=== PATIENT | female | born 1980 | race Caucasian/White ===

== ENCOUNTER → 2016-03-15 | Outpatient (CLI) | payer MEDICAID ==
--- NOTE | 2016-03-15 13:55 | US ---
March 15, [address] Hardin, Thank you for requesting consultation and a detailed obstetrical ultrasound for Mrs. Contreras secondary to advanced maternal age. As you know, Cr is a [age] year old G 3, P 2000 . Her due date is 12/31 by first trimester ultrasound. Her current gestational age based on this dating is 21 weeks 1 days. Her genetic screening revealed a reassuring Panorama NIPT by her report. She had gestational hypertension in her prior pregnancies, but denies preeclampsia. Both babies were delivered vaginally at term. She reports travel to areas of Zika concern in the first trimester of . To her k nowledge she did not have any illness associated with this event. Zika serology has not yet been per formed. ULTRASOUND Number of fetuses: 1 Placental location: Anterior to left lateral Placental cord insertion: Intraplacental presentation: Breech Cervix: 4.6 cm viewed transabdominally Maximum Vertical Pocket: 4.3 cm The adnexa were evaluated. No pathology was seen. Right ovary is visualized and appears normal. It measures 2.7 x 2.7 x 1.8 cm. Left ovary is visualized and appears normal. It measures 2.7 x 2.7 x 1.5 cm. MEASUREMENTS: Biparietal diameter: 50 mm 21 weeks, 2 days Head circumference: 196 mm 21 weeks, 6 days Abdominal circumference: 161 mm 21 weeks, 2 days Femur length: 34 mm 20 weeks, 6 days Humerus length: 33 mm 21 weeks, 3 days Transcerebellar diameter: 24 mm 22 weeks, 1 days Average ultrasound age: 21 weeks, 3 days Estimated weight: 398 gm weight percentile: 43% ANATOMY Supratentorial brain: Normal including views of the falx, cavum septum pellucidum and choroids Lateral Ventricle: Normal, measuring 6.8 mm Posterior fossa: Normal including the cerebellum and cisterna magna Spine: Normal axial views; suboptimal sagittal views Nuchal fold: 3.5 mm normal Face: Normal views of the lip and nose area Profile: Normal Palate: Normal appearance of the alveolar ridge Cardiac Exam: Four chamber view of the heart: Normal including intraventricular septum Left Ventricular Outflow Tract: Normal Right Ventricular Outflow Tract: Normal 3 Vessel View: Normal Tracheal View: Suboptimal Aortic Arch: Normal Ductal Arch: Normal SVC/IVC: Normal Heart Rate: 152 bpm Diaphragm: No overt abnormalities have been detected Stomach: Normal Umbilical cord insertion: Normal Right kidney: Normal Left kidney: Normal Bladder: Normal Number of cord vessels: Three Upper extremities: Normal including the number, and architecture Lower extremities: Normal including the number and architecture Gender: Female IMPRESSION: 1. Intrauterine at 21 w 1 d, MALCOLM of 07/26/15. This is consistent with her previously esta blished dates. 2. Today's sonogram reveals a normal appearing fetus. 3. Cervical length measures 4.6 cm, and is without evidence of insufficiency. 4. Advanced maternal age RECOMMENDATIONS: I was pleased to review today's ultrasound with your patient. I have reassured her that the gr owth and amniotic fluid volume are appropriate for this gestational age. The detailed anatomic surve y did not reveal any overt abnormalities. Cr is aware that ultrasound is a screening tool and cannot provide definitive genetic diagnosis. Should she desire definitive genetic diagnosis, she would need to have a genetic amniocentesis performed. After our discussion regarding the procedure, benefits, risks, alternatives, and limitations to the information received Cr DECLINES amniocente sis. We discussed her exposure to Zika in this and the current CDC recommendations. She is like ly out of range for serologic testing. She could consider ultrasound surveillance which is recommend ed monthly throughout the . She felt that she was low risk and would like to defer further ultrasound evaluation. I asked her to discuss this with you at your next visit. Future ultrasound and consultation is left to your clinical discretion. Thank you for allowing me the opportunity to consult and evaluate your patient. Should you have any questions or concerns please do not hesitate to contact me. This visit was approximately 15 minutes in length with 10 minutes spent in direct face to face consultation reviewing aneuploidy screening ve rsus definitive genetic diagnosis. Sincerely, Sharla Jorgensen MD [facility] Department of Obstetrics & Gynecology [facility]
--- NOTE | 2016-03-15 19:05 | US ---
Detailed Obstetric Ultrasound March 15, 2016 Indication: 35-year-old 3 para 2-0-0-2 woman presenting to the Perinatology Clinic for anatom y and dating. is complicated by advanced maternal age.. The estimated gestational age of pr evious dating is 21 weeks and 1 day yielding an EDC of July 25, 2016. Comparison: None. Findings: Number: 1 Presentation: Breech Placental location: Anterior left paramedian Placenta cord insertion: Central Cervix: 4.6 cm (visualized transabdominally) Maximum vertical pocket: 4.3 cm heart rate: 152 bpm Ovaries: Normal size. Right: 2.7 x 2.7 x 1.8 cm. Left: 2.8 x 2.7 x 1.5 cm Biometry: Biparietal diameter: 50 mm 21 weeks, 2 days Head circumference: 196 mm 21 weeks, 6 days Abdominal circumference: 161 mm 21 weeks, 2 days Femur length: 34 mm 20 weeks, 6 days Humerus length: 33 mm 21 weeks, 3 days Transcerebellar diameter: 24 mm 22 weeks, 1 day HC/AC: 1.21 (1.06 - 1.25) FL/BPD: 68% FL/AC: 21% Average ultrasound age: 21 weeks, 3 days EDC based on today's average ultrasound age: July 23, 2016 Estimated weight is 400 grams +/- 58 grams. The estimated weight is at the 43rd percentil e based on previous dating. Anatomy Survey: Supratentorial brain: Normal including views of the cava septum pellucidum and falx. Posterior fossa: Normal Spine: Suboptimal sagittal views. Normal on axial imaging. Nuchal fold: Normal; 3.5 mm Nose, palate, and lips: Normal Facial profile: Normal Heart: Four-chamber heart. Intact interventricular septum. Cardiac outflow tracts: Normal crossing right and left outflow tracts. Diaphragm: Normal contour Stomach: Normal Umbilical cord insertion: Normal Kidneys: Normal, no pyelectasis Bladder: Normal Number of cord vessels: Three Upper extremities: Normal Lower extremities: Normal. Gender: Female Impression: 1. Living tinajero in breech presentation. Size is concordant with dates. The estimated gestational age by biometry is 21 weeks and 3 days yielding an EDC of July 23, 2016. The estima juan gestational age by previous dating is 21 weeks and 1 day. 2. Normal anatomy. No anomalies detected. 3. Anterior placenta. No previa. Normal amniotic fluid volume. 4. Please refer to Dr. Sharla Jorgensen's perinatology consultation and recommendations.
== END ==
LOC: FIMAGING 12:12
PROVIDERS: ATTEND Obstetrics & Gynecology
DX: O09.522 Supervision of elderly multigravida, second trimester (principal); Z3A.21 21 weeks gestation of pregnancy

== ENCOUNTER → 2016-05-17 | Outpatient (CLI) | payer MEDICAID | LOC: FIMAGING 10:34 | PROVIDERS: ATTEND Obstetrics & Gynecology | DX: O09.523 Supervision of elderly multigravida, third trimester (principal); Z87.59 Personal history of other complications of pregnancy, childbirth and the puerperium; Z3A.30 30 weeks gestation of pregnancy ==